=== PATIENT | male | born 1980 | race Caucasian/White ===

== ENCOUNTER 2025-03-10 15:37 | Emergency (ER) | payer OTHER, SELFPAY ==
--- NOTE | 2025-03-10 16:03 | PC.NURSE ---
Visualized patient telling registration that he was going to leave. Was never triaged, ambulated out of the ED under own power.
== END 2025-03-10 16:04 | disposition left against medical advice (07) ==
PROVIDERS: Emergency Provider Family Medicine
DX: S05.90XA Unspecified injury of unspecified eye and orbit, initial encounter (principal); X58.XXXA Exposure to other specified factors, initial encounter; Z53.21 Procedure and treatment not carried out due to patient leaving prior to being seen by health care provider